=== PATIENT | female | born 2000 | race Caucasian/White ===

== ENCOUNTER 2020-10-24 18:47 | Inpatient (IN) | payer SELFPAY ==
--- NOTE | 2020-10-24 19:51 | PC.NURSE ---
Per Dr. De patient is allowed to keep left cartilage piercing in.
[2020-10-24 20:26] VITALS: BP 132/70; PULSE 76; RESP 18; TEMP 36.3; O2SAT 97
--- NOTE | 2020-10-24 22:20 | PC.NURSE ---
19/F SI, overdosed Direct Admit from [facility] in [place], [place]. Admitted on a 96 hour hold, Suicide attempt on 10/21/20, pt Overdosed on 8 tablets of Sertraline 100mg. Pt intentionally took medication, admitted to nurse that she researched possible reaction if she took this medication prior to attempt. PT minimizes her actions and stated I was at a place that I was overwhelmed and thought, if I , I . Pt reports hx of cutting since 2013 and states that she has really been going after her thighs, lately , body dysmorphia, and hx of eating disorder in the past. Pt lives with her mother and states she has a hx of depression and high anxiety. Pt denies active SI, calm/cooperative with staff on admission to unit. Hx of occasional use of marijuana (last Saturday) drinks on occasion, and vapes daily. Pt will ride home with mother at time of discharge.
[2020-10-24] MEDS: hyDROXYzine 25 mg Capsule 50 MG PO (22:45)
[2020-10-24] MEDS: trazodone 50 mg Tablet 100 MG PO (22:45)
[2020-10-25 06:00] VITALS: BP 113/70; PULSE 67; RESP 17; TEMP 36.8; O2SAT 95
[2020-10-25 14:00] VITALS: BP 126/68; PULSE 92; RESP 18; TEMP 36.9; O2SAT 92
--- NOTE | 2020-10-25 14:35 | PM.NHP ---
Providers/Chief Complaint Admitting Physician: Dillon De MD Chief Complaint: SI HPI NPU History of Present Illness Nomra Soria is a 19 year old female who presented to the outside hospital endorsing that she had taken some pills but being unclear about the intent. She was placed on a 96-hour hold and transferred to [facility] and ultimately admitted to the neuropsychiatric unit for definitive treatment of those issues. She presents today reporting that her first hospitalization was when she was 16 years old and this likely represents a third time she is been admitted. She reports that she has had outpatient treatment and follow-up sometimes but reports having missed an appointment leading to challenges in the pandemic era. She denies smoking cigarettes and reports alcohol use occasionally, marijuana use occasionally but denies use of other drugs. She never been to rehab or had a DUI. She is very ambiguous about what really brings her here reporting that she was struggling with some circumstances in her life and just wanted to sleep and so she took Benadryl and a large quantity but she denies it being larger than quantity she is taken in the past just to sleep. She reports that she has been struggling with intrusive thoughts of cutting and self-injurious behavior also having some problematic eating strategies/eating behavior that is disordered that again was intrusive in her mind and she wanted to sleep and not have to deal with it but she denies it being an actual suicide attempt. We discussed the risks, benefits and alternatives of initiating Lexapro 10 mg p.o. every morning and she understood and agreed to proceed as noted in this note. Psychiatric history: As above. Subs abuse history: As above. Family history: She endorses mental health issues on her mother side but denies addiction issues on mother or father side and denies any known history of suicide attempts or completions. Developmental history: She denies any issues with her mother's with her and she denies any issues with the or delivery. Plan to walk and talk by developmental milestones on time and reports when she is off to school that she did get some reading or writing issues for maybe a year but otherwise denies speech therapy, learning support, emotional support/education classes. Psychosocial history: She reports that her mother and father were together when she was born but when she is about 1 or 2. She reports that they had her older sister who is also a product of that same union. She denies that either of her children have any other kids that would be her half siblings. She endorses that her childhood was all right and denied emotional, physical or sexual abuse. She graduated from high school and had a couple college semesters. She reports her longest relationship is 11 months and that she is bisexual. She never been , she never had biological children, she never been in the , and she denies any rastafari Garo system. She reports her longest employment was for 9 to 10 months at [employer] endorses that she lives in apartment with her mom. Legal history: She denies any history of being in snf or significant legal peril. Medical history: She denies any significant contributory medical history. Meds NPU Home Medications Medication Instructions Recorded Confirmed Last Taken Type hydroxyzine HCl 50 mg PO BEDTIME 10/24/20 10/24/20 10/23/20 History sertraline 100 mg PO DAILY 10/24/20 10/24/20 10/21/20 History trazodone 100 mg PO BEDTIME 10/24/20 10/24/20 10/20/20 21:00 History Allergies Allergy/AdvReac Type Severity Reaction Status Date / Time amoxicillin Allergy ALGY-Rash Verified 10/24/20 21:40 cariprazine [From Vraylar] Allergy ADR-Agitate Verified 10/24/20 21:46 d PFSH NPU PFSH: Family History (Updated 10/24/20 @ 21:40 by Jessica Osullivan RN) Mother Psychiatric illness Hypertension Sister Thyroid disease Father Thyroid disease Social History (Updated 10/24/20 @ 21:37 by Jessica Osullivan RN) Smoking and tobacco status: current every day smoker e-cigarettes E-cig/vape details: daily use of vape for last 4 yrs Second hand smoke exposure: No Smoking risk assessment/counseling performed?: Yes Last alcohol use date: 10/12/20 Substance/Drug Use: current Substance/Drug use frequency: few times a month Substance/Drug use type: Marijuana Other substance/drug use details: used shrooms 5 yrs ago Desire information about substance/drug rehabilitation?: No Counseling given: Yes (when to seek help) Adopted: No Caregiver/support person: Yes Lives independently: No Household members: family Housing: Apartment Marital status: Single Highest education level completed: High School Graduate service: No Leisure activites: music and reading Sexually active: Yes Current gender identity: Female Special carito needs: No Agree to transfusion: Yes Financial difficulty paying for basics: Somewhat Hard Mental Status Exam MSE Comments: This is an overweight white female in hospital scrubs with limited grooming but adequate eye contact. No abnormal movements except for mild psychomotor retardation. Cooperative with exam in mild distress. Speech was decreased rate and volume. Mood described as pretty good right now affect slightly subdued. Thought process organized. Thought content: Patient denied suicidal or homicidal ideation, there were no delusions reported or noted, she denied any auditory or visual hallucinations. Attention concentration were intact and memory appeared reliable but none were formally tested. She is alert and oriented x3. Identified and impulse control is impaired. Vitals/I&O/Wt Last Vital Signs Temp 98.2 F 10/25/20 06:00 Pulse 67 10/25/20 06:00 Resp 17 10/25/20 06:00 BP 113/70 10/25/20 06:00 Pulse Ox 95 10/25/20 06:00 Weight last 48 hrs Weight 72.6 kg A&P Assessment and plan (1) Depression: Status: Acute (2) Cluster B personality disorder: Status: Acute (3) Suicide attempt: Status: Acute Additional A&P Information This is a 19-year-old Y female with a long history of mental health issues and possible personality disorder who presents with recent intentional overdose on a 96-hour hold. 1. Continue current medication. Start Lexapro 10 mg p.o. every morning. 2. Continue every 15 minute checks for safety. 3. Encourage individual, group and milieu therapies. 4. Encourage sober living treatment after discharge at the highest level of care to which he is willing to commit. Involuntary Hold Information 96 Hour Hold: 96 Hour Involuntary Admission: Yes 96 Hour Hold Ending Date: 10/28/20 96 Hour Hold Ending Time: 17:28 Attestations NPU Medical Necessity Statement*: Inpatient hospitalization is medically necessary and the clinically appropriate intervention at this time. We will monitor medications and make changes as indicated. Patient will be in the hospital for over two midnights. Likely length of stay 2-4 days. Coding Level of Care Code Acute Manager Programming for Anthony Morleyd Diagnoses Depression F32.9 Cluster B personality disorder F60.89 Suicide attempt T14.91XA
[2020-10-25] MEDS: escitalopram 10 mg Tablet PO (14:56)
[2020-10-25 19:41] VITALS: BP 120/86; PULSE 85; RESP 15; TEMP 36.7; O2SAT 95
[2020-10-25] MEDS: trazodone 50 mg Tablet 100 MG PO (20:04)
[2020-10-25] MEDS: hyDROXYzine 25 mg Capsule 50 MG PO (20:04)
[2020-10-26 06:00] VITALS: BP 112/67; PULSE 73; RESP 14; TEMP 36.7; O2SAT 96
[2020-10-26] MEDS: escitalopram 10 mg Tablet PO (08:42)
--- NOTE | 2020-10-26 11:45 | P.PN_ITS ---
Subjective NPU Subjective: Interval history: Norma presents to the appointment reporting that she is tolerating the Lexapro fine without any problems. She reports that overall she is feeling better and more optimistic. She reports a desire to continue treatment outpatient. She is hopeful to get discharge soon and we discussed it happening by Saturday. She denied any major concerns and reports she is working with her significant others to avoid a repeat. Mental Status Exam MSE Comments: This is an overweight white female in hospital scrubs with improving grooming andadequate eye contact. No abnormal movements except for mild psychomotor retardation. Cooperative with exam in no acute distress. Speech was decreased rate and volume. Mood described as pretty good right now affect brighter. Thought process organized. Thought content: Patient denied suicidal or homicidal ideation, there were no delusions reported or noted, she denied any auditory or visual hallucinations. Attention concentration were intact and memory appeared reliable but none were formally tested. She is alert and oriented x3. insight and judgment fair and impulse control is improving. Vitals/I&O/Wt Last Vital Signs Temp 98.1 F 10/26/20 06:00 Pulse 73 10/26/20 06:00 Resp 14 10/26/20 06:00 BP 112/67 10/26/20 06:00 Pulse Ox 96 10/26/20 06:00 A&P Additional A&P Information (1) Depression: (2) Cluster B personality disorder: (3) Suicide attempt: Additional A&P Information This is a 19-year-old Y female with a long history of mental health issues and possible personality disorder who presents with recent intentional overdose on a 96-hour hold. 1. Continue current medication. 2. Continue every 15 minute checks for safety. 3. Encourage individual, group and milieu therapies. 4. Encourage sober living treatment after discharge at the highest level of care to which she is willing to commit. Involuntary Hold Information 96 Hour Hold: 96 Hour Involuntary Admission: Yes 96 Hour Hold Ending Date: 10/28/20 96 Hour Hold Ending Time: 17:28 Attestations NPU Medical Necessity Statement*: Inpatient hospitalization is medically necessary and the clinically appropriate intervention at this time. We will monitor medications and make changes as indicated. Likely length of stay 1-3 days. Coding Level of Care Code Acute Assistant Operations Manager for Anthony Saucedo
[2020-10-26 14:00] VITALS: BP 109/67; PULSE 58; RESP 16; TEMP 36.2; O2SAT 98
[2020-10-26] MEDS: trazodone 50 mg Tablet 100 MG PO (20:28)
[2020-10-26] MEDS: hyDROXYzine 25 mg Capsule 50 MG PO (20:28)
[2020-10-26 21:14] VITALS: BP 104/61; PULSE 69; RESP 18; TEMP 36.6; O2SAT 98
[2020-10-27 05:37] VITALS: BP 96/67; PULSE 67; RESP 18; TEMP 36.7; O2SAT 96
[2020-10-27] MEDS: escitalopram 10 mg Tablet PO (08:11)
--- NOTE | 2020-10-27 11:34 | PM.NDC ---
Diagnoses at Discharge Discharge Diagnosis (1) Depression: Status: Acute (2) Cluster B personality disorder: Status: Acute (3) Suicide attempt: Status: Resolved Reason for Visit Reason for Visit: SI Brief History: History of Present Illness Norma Soria is a 19 year old female who presented to the outside hospital endorsing that she had taken some pills but being unclear about the intent. She was placed on a 96-hour hold and transferred to [facility] and ultimately admitted to the neuropsychiatric unit for definitive treatment of those issues. She presents today reporting that her first hospitalization was when she was 16 years old and this likely represents a third time she is been admitted. She reports that she has had outpatient treatment and follow-up sometimes but reports having missed an appointment leading to challenges in the pandemic era. She denies smoking cigarettes and reports alcohol use occasionally, marijuana use occasionally but denies use of other drugs. She never been to rehab or had a DUI. She is very ambiguous about what really brings her here reporting that she was struggling with some circumstances in her life and just wanted to sleep and so she took Benadryl and a large quantity but she denies it being larger than quantity she is taken in the past just to sleep. She reports that she has been struggling with intrusive thoughts of cutting and self-injurious behavior also having some problematic eating strategies/eating behavior that is disordered that again was intrusive in her mind and she wanted to sleep and not have to deal with it but she denies it being an actual suicide attempt. We discussed the risks, benefits and alternatives of initiating Lexapro 10 mg p.o. every morning and she understood and agreed to proceed as noted in this note. Psychiatric history: As above. Subs abuse history: As above. Family history: She endorses mental health issues on her mother side but denies addiction issues on mother or father side and denies any known history of suicide attempts or completions. Developmental history: She denies any issues with her mother's with her and she denies any issues with the or delivery. Plan to walk and talk by developmental milestones on time and reports when she is off to school that she did get some reading or writing issues for maybe a year but otherwise denies speech therapy, learning support, emotional support/education classes. Psychosocial history: She reports that her mother and father were together when she was born but when she is about 1 or 2. She reports that they had her older sister who is also a product of that same union. She denies that either of her children have any other kids that would be her half siblings. She endorses that her childhood was all right and denied emotional, physical or sexual abuse. She graduated from high school and had a couple college semesters. She reports her longest relationship is 11 months and that she is bisexual. She never been , she never had biological children, she never been in the , and she denies any episcopalian Garo system. She reports her longest employment was for 9 to 10 months at [employer] endorses that she lives in apartment with her mom. Legal history: She denies any history of being in care home or significant legal peril. Medical history: She denies any significant contributory medical history. Hospital Course Hospital Course Patient presented to outside hospital with concern depression, intentional ingestion and suicidality. She was transferred to [facility] and ultimately admitted to neuropsychiatric definitive treatment of those issues. On the unit she quickly acclimated to the individual, group and milieu therapy provided. She was started on Lexapro 10 mg p.o. every morning and showed modest improvement. We able to work with her to address some of the psychosocial stressors and look at viable ways to manage them prior to discharge. She was able to contract for safety prior to discharge. During the hospitalization, patient had routine laboratory studies which were within normal limits except for few outliers. Additionally there was a general medical evaluation which was also within normal limits and revealed no new acute processes. Discharge Summary: At the time of discharge, she denied lethality or psychosis. Mood and anxiety were well managed. Patient endorsed a plan to avoid all drugs of abuse and follow-up with the aftercare recommendations of the treatment team. Patient was evaluated and deemed to be absent credible lethality, and had achieved the maximum benefit from an inpatient hospitalization, so was discharged. Involuntary Hold Information 96 Hour Hold: 96 Hour Involuntary Admission: Yes 96 Hour Hold Ending Date: 10/28/20 96 Hour Hold Ending Time: 17:28 Mental Status Exam MSE Comments: This is an overweight white female in hospital scrubs with improving grooming and adequate eye contact. No abnormal movements except for mild psychomotor retardation. Cooperative with exam in no acute distress. Speech was more normal rate and volume. Mood described as pretty good, affect brighter. Thought process organized. Thought content: Patient denied suicidal or homicidal ideation, there were no delusions reported or noted, she denied any auditory or visual hallucinations. Attention concentration were intact and memory appeared reliable but none were formally tested. She is alert and oriented x3. insight and judgment fair and impulse control is improving. Discharge Data Vitals: Last Vital Signs Temp 98.1 F 10/27/20 05:37 Pulse 67 10/27/20 05:37 Resp 18 10/27/20 05:37 BP 96/67 10/27/20 05:37 Pulse Ox 96 10/27/20 05:37 Discharge Plan Discharge Patient Disposition: Home Condition: Stable Prescriptions: New escitalopram oxalate 10 mg Tablet 10 mg PO DAILY 30 Days Qty: 30 RF: 1 Continued trazodone 50 mg tablet 100 mg PO BEDTIME 30 Days Qty: 60 RF: 1 hydroxyzine HCl 25 mg tablet 50 mg PO BEDTIME 30 Days Qty: 60 RF: 1 Discontinued sertraline 100 mg tablet 100 mg PO DAILY RF: 0 Discharge Orders: Discharge Order (Routine); Ordered 10/27/20 Ordered By: Dillon De Referrals: [facility] (Fabi Simpson MANAGER PROVIDER RELATIONS) [Other] - 11/08/20 12:00 pm Discharge Diet: Regular Discharge Activity: Resume usual activity Patient Instructions: Opioid Safety Discharge Attestations NPU Time Spent in Discharge Care*: less than 30 min Specific Discharge Activities: Specific discharge activities: educating patient, discussing with bilingual case manager/social workers/dc planners, documenting/other paperwork and evaluating patient/reviewing data Coding Level of Care Code Acute [facility] DC note Diagnoses Depression F32.9 Cluster B personality disorder F60.89 Suicide attempt T14.91XA
[2020-10-27 11:36] VITALS: BP 96/67; PULSE 67; RESP 18; TEMP 36.7; O2SAT 96
--- NOTE | 2020-10-28 13:59 | PC.RESP ---
Smoking Cessation information sent to patient.
== END 2020-10-27 16:35 | disposition home or self-care (01) | DRG 918 ==
PROVIDERS: Admitting Provider Psychiatry & Neurology Psychiatry; Visit Provider Psychiatry & Neurology Psychiatry
DX: T45.0X2A Poisoning by antiallergic and antiemetic drugs, intentional self-harm, initial encounter (principal); F32.9 Major depressive disorder, single episode, unspecified; F60.89 Other specific personality disorders; T14.91XA Suicide attempt, initial encounter; F17.290 Nicotine dependence, other tobacco product, uncomplicated; Z81.8 Family history of other mental and behavioral disorders; F12.90 Cannabis use, unspecified, uncomplicated